=== PATIENT | female | born 2005 | race Hispanic/Latino ===

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

== ENCOUNTER 2024-02-08 13:07 | Emergency (ER) | payer SELFPAY ==
--- OUTSIDE RECORDS SUMMARY | 2024-02-08 13:11 | XMS REPORT | Continuity of Care Document ---
Author Name Unknown Address [address] [facility] [place] [address] [facility] thconnect Address [address] [facility] [place] [address] Care Team Providers Care Scabbler Name Role Phone Pcp, Patient Does Not Have A Primary Care Physic corinna LILI PICKENS Attending Clinician Unavailable Doctor Unassigned, [place] Attending Clinician U Cordell Sharma MD Attending Clinician CORDELL VELAZQUEZ Attending Clinician Unavailable Payers Payer Name Policy Type Policy Number Effective Date Expirati on Date Source [facility] [id number] 2023 00:00:00 Allergies, Adverse Reactions, Alerts Allergy Name Allergy Type Status Severity Reaction(s) Onset Date Inactive Date Treating Clinician Comments Source NO KNOWN ALLERGIE S Drug Class Active [facility] Social History Social Habit Start Date Stop Date Quantity Comments Source [facility] Alcohol intake 2023-11-10 00:00:00 2023-11-10 00:00:00 Lifetime non-drinker (finding) [facility] History of Social function 2023-11-10 00:00:00 2023-11-10 00:00:00 [facility] Tobacco use and exposure 2023-10-17 00:00:00 2023-10-17 00:00:00 Smokeless tobacco non-user [facility] Sex Assigned At 2005 00:00:00 2005 00:00:00 [facility] Smoking Status Start Date Stop Date Source Tobacco smoking consumption unknown [facility] Never smoked tobacco [facility] Medications Ordered Medication Name Filled Medication Name Start Date Stop Date Current Medication? Ordering Clinician Indication Dosage Frequency Signature (SIG) Comments Components Source levonorgest rel-ethinyl estradiol 0.1-20 mg-mcg per tablet 11-09 00:00: 00 Yes [id number] 1{tbl} Take 1 tablet by mouth in the morning. [facility] Nitrofurant oin&Nit. Macrocryst 100 mg capsule 10-17 00:00: 00 Yes [id number] 100mg Take 1 capsule by mouth in the morning and 1 capsule in the evening. [facility] NUVARING 0.12-0.015 mg/24 hr vaginal insert 10-17 00:00: 00 11-09 00:00 :00 No [id number] 1{each} Insert 1 Each into vagina once every month. Insert vaginally and leave in place for 3 consecutiv e weeks, then remove for 1 week. [facility] Vital Signs Vital Name Observation Time Observation Value Comments S our Systolic blood pressure 2023-11-10 15:18:00 116 mm[Hg] [facility] hospital Diastolic blood pressure 2023-11-10 15:18:00 72 mm[Hg] [facility] acute hospital Heart rate 2023-11-10 15:18:00 102 /min [facility] Body temperature 2023-11-10 15:18:00 37.11 Salma [facility] Respiratory rate 2023-11-10 15:18:00 16 /min [facility] Body height 2023-11-10 15:18:00 162.6 cm [facility] Body weight 2023-11-10 15:18:00 54.432 kg [facility] BMI 2023-11-10 15:18:00 20.60 kg/m2 [facility] Body mass index (BMI) [Percentile] Per age and sex 2023-11-10 15:18:00 37.89 % General acute hospital Systolic blood pressure 2023-10-17 21:24:00 117 mm[Hg] [facility] acute hospital Diastolic blood pressure 2023-10-17 21:24:00 67 mm[Hg] General acute hospital Heart rate 2023-10-17 21:24:00 77 /min [facility] Body temperature 2023-10-17 21:24:00 37.11 Salma [facility] Respiratory rate 2023-10-17 21:24:00 18 /min [facility] Body height 2023-10-17 21:24:00 162.6 cm [facility] Body weight 2023-10-17 21:24:00 55.339 kg [facility] BMI 2023-10-17 21:24:00 20.94 kg/m2 [facility] Body mass index (BMI) [Percentile] Per age and sex 2023-10-17 21:24:00 42.72 % General acute hospital Procedures Procedure Date / Time Performed Performing Clinician Source CONSENT FOR CONTRACEPTION 2023-11-10 05:01:00 Doctor Unassigned, [place] [facility] POCT TEST 2023-11-10 00:00:00 Lili Pickens [facility] ASSIGNMENT OF BENEFITS 2023-10-17 21:22:02 Docto r Unassigned, [place] [facility] POCT TEST 2023-10-17 00:00:00 Cordell Velazquez [facility] POCT URINALYSIS W/O SPECIFIC GRAVITY 2023-10-17 00:00:00 Cordell Velazquez [facility] Encounters Start Date/Time End Date/Time Encounter Type Admission Type Attending Clinicians Care Facility Care Department Encounter ID Source 2023-11-10 10:00:00 2023-11-10 10:31:26 Outpatient R LILI PICKENS [facility] [id number] [facility] 2023-11-10 10:00:00 2023-11-10 10:31:26 Office Visit Lili Pickens [facility] [id number] [id number] 134 [id number] [facility] 2023-11-10 00:00:00 2023-11-10 00:00:00 Orders Only Doctor Unassigned, [place] [facility] [id number] [id number] [id number] 009 [id number] [facility] 2023-11-06 00:00:00 2023-11-06 00:00:00 Telephone Adum, Cordell Jorgensen [facility] [id number] [id number] [id number] 134 [id number] [facility] 2023-10-17 15:00:00 2023-10-17 15:30:00 Office Visit Adum, Cordell Jorgensen [facility] [id number] [id number] [id number] [id number] 134 [id number] [facility] 2023-10-17 15:00:00 2023-10-17 15:00:00 Outpatient R ADOH, CORDELL [facility] [id number] [facility] 2023-10-17 00:00:00 2023-10-17 00:00:00 Orders Only Doctor Unassigned, [place] [facility] [id number] [id number] 4.2.7.2.686 [id number] [facility] Results Test Description Test Time Test Comments Results Result Co mments Source [facility] [id number] 15:18:00* Test Item Value Reference Range Interpretation Comme nts POCT PREG (test code = 1605) Negative On board controls acceptable with C Line (test code = 3574) Yes POCT PREG LOT # (test code = 3575) POCT PREG TEST DATE ( test code = 3576) [facility] [id number] 23:00:00* Test Item Value Reference Range Interpretation Comme nts POCT PREG (test code = 1605) Negative On board controls acceptable with C Line (test code = 3574) Yes POCT PREG LOT # (test code = 3575) POCT PREG TEST DATE ( test code = 3576) [facility] [id number] 23:00:00* Test Item Value Reference Range Interpretation Comme nts POCT PREG (test code = 1605) Negative On board controls acceptable with C Line (test code = 3574) Yes POCT PREG LOT # (test code = 3575) POCT PREG TEST DATE ( test code = 3576) [facility] Urinalysis w/o Specific [id number] 22:05:00* Test Item Value Reference Range Interpretation [...] = 3257) 250 Negative - Negati ve [facility] w/o Specific [id number] 22:05:00* Test Item Value Reference Range Interpretation [...] = 3257) 250 Negative - Negati ve [facility] Notes Date/Time Note Provider Source 2023-11-06 15:49:55 [id number]:49:55F ormatting of this note might be different from the original.Spoke with patient. Patient states she started the nuvaring. Patient does not like the nuvaring. Patient reports it is painful and has fallen out of placed multiple times. Patient wanting to start OCP. Patient removed nuvaring today. Patient scheduled for 11/10/2023.Rishabh Hayes RN 11/06/2023 3:59 PM 58583-3Buipdpjca encounter [id number]:59:09Telepho ne encounter NoteTXT1.2.840.434701.1.13.104.2 .7.2.770471|[id number] e for patient iwlg29477-0RacbREQOMMMKRWUEujjkh penelope CStockdriftCDA narrative [id number] Collins [address] 1488EFZKOHCBMTVXRFURBHTBNX8179-4 :59:091.2.840.695855.1.72 .3.15|1.2.840.197376.1.13.104.2. [id number] Rishabh Hayes [facility] 2023-11-06 15:34:33 [id number]:34:33F ormatting of this note might be different from the original.Patient want to switch her control says she was told just to call want to try control pills. 18968-3Vmeircrhk encounter [id number]:35:40Telepho ne encounter NoteTXT1.2.840.586407.1.13.104.2 .7.2.015680|[id number] e for patient dfdw91058-7UkpeNAGUDWCGCSIYijoez penelope C-CDA narrative [id number] [address]Gal[address]on[place] 2380JRJCBBGWRXXHFBLRSTWAWO5277-0 5:35:401.2.840.482477.1.72 .3.15|1.2.840.861705.1.13.104.2. [id number] Yoana Calderon [facility]"
[2024-02-08] MEDS ORDERED: LIDOCAINE 1% MPF 5 ML VIAL ONE (13:40)
[2024-02-08] MEDS ORDERED: TDAP (DIPHTH,PERTUSS(ACELL),TET VAC) 0.5 ML VIAL IMVAC ONE ×2 (13:41→13:47)
--- NOTE | 2024-02-08 14:32 | RAD REPORT ---
EXAM DESCRIPTION: RAD - Knee Right 3 View - 02/08/2024 2:27 pm CLINICAL HISTORY: laceration Pain and swelling COMPARISON: No comparisons FINDINGS: No fracture, dislocation or radiopaque foreign body. No significant joint effusion.
--- NOTE | 2024-02-08 14:46 | ER ---
Nurse's Notes [facility] Name: Pari Calderon Age: 18 yrs Sex: Female : 2005 Arrival Date: 02/08/2024 Time: 13:07 Bed 12 Private MD: Diagnosis: Laceration without foreign body of knee-right Presentation: 02/07 13:31 Chief complaint: Patient states: Pt reports she cut her right knee on the pool ladder kb3 last night. 2.5 cm linear laceration noted inferior to the right knee, edges are jagged. No bleeding noted. Coronavirus screen: Vaccine status: Patient reports being unvaccinated. Client denies travel out of the [place] in the last 14 days. Ebola Screen: Patient negative for fever greater than or equal to 101.5 degrees Fahrenheit, and additional compatible Ebola Virus Disease symptoms Patient denies exposure to infectious person. Patient denies travel to an Ebola-affected area in the 21 days before illness onset. Complicating Factors: There are no complicating factors for this patient. Initial Sepsis Screen: Does the patient meet any 2 criteria? No. Patient's initial sepsis screen is negative. Does the patient have a suspected source of infection? No. Patient's initial sepsis screen is negative. Risk Assessment: Do you want to hurt yourself or someone else? Patient reports no desire to harm self or others. Onset of symptoms was February 07, 2024. 13:31 Method Of Arrival: Ambulatory 3 13:31 Acuity: [place]RA[place] 4 kb3 Triage Assessment: 13:33 General: Appears in no apparent distress. Behavior is calm, cooperative. Pain: kb3 Complains of pain in right knee Pain does not radiate. Pain currently is 3 out of 10 on a pain scale. Injury Description: Laceration sustained to right knee is jagged, 0.5 to 2.5 cm long, not bleeding, was sustained 12-24 hours ago. is bleeding no active bleeding noted. 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 Last tetanus immunization: < 10 years ago. - Infectious Disease History:: Denies. - Social history:: Smoking status: Reported history of juuling and/or vaping. Screenin:23 [facility] ED Fall Risk Assessment (Adult) History of falling in the last 3 months, hb including since admission No falls in past 3 months (0 pts) Confusion or Disorientation No (0 pts) Intoxicated or Sedated No (0 pts) Impaired Gait No (0 pts) Mobility Assist Device Used No (0 pt) Altered Elimination No (0 pt) Score/Fall Risk Level 0 - 2 = Low Risk Oriented to surroundings, Maintained a safe environment, Educated pt \T\ family on fall prevention, incl call for assistance when getting out of bed. Abuse screen: Denies threats or abuse. Denies injuries from another. Nutritional screening: No deficits noted. Tuberculosis screening: No symptoms or risk factors identified. Assessment: 14:22 General: Appears in no apparent distress. Behavior is calm, cooperative. Pain: Pain hb currently is 3 out of 10 on a pain scale. Neuro: Level of Consciousness is awake, alert, obeys commands, Oriented to person, place, time, situation. Cardiovascular: Patient's skin is warm and dry. Respiratory: Respiratory effort is even, unlabored, Respiratory pattern is regular, symmetrical. GI: No signs and/or symptoms were reported involving the gastrointestinal system. : No signs and/or symptoms were reported regarding the genitourinary system. EENT: No signs and/or symptoms were reported regarding the EENT system. Derm: Skin is pink, warm \T\ dry. Musculoskeletal: Reports right knee pain. Injury Description: Laceration sustained to right knee and left leg is clean, 0.5 to 2.5 cm long, was sustained 2-4 hours ago. is bleeding a dressing was applied. Vital Signs: 13:31 BP 97 / 63; Pulse 80; Resp 18; Temp 97.9; Pulse Ox 100% ; Weight 56.7 kg; Height 5 ft. kb3 4 in. ; Pain 3/10; 14:56 BP 100 / 68; Pulse 89; Resp 18; Temp 98.2; Pulse Ox 100% ; Pain 0/10; kb3 13:31 Body Mass Index 21.46 (56.70 kg, 162.56 cm) - Percentile 48.6 % kb3 13:31 Pain Scale: Adult kb3 14:56 Pain Scale: Adult kb3 ED Course: 13:10 Patient arrived in ED. rg4 13:11 Marques Estrella MD is Attending Physician. ec2 13:14 Nils Tan PA is PHCP. cp 13:33 Triage completed. kb3 13:33 Arm band placed on right wrist. kb3 14:08 Carito Shannon, RN is Primary Nurse. kb3 14:10 Assist provider with laceration repair on right knee that was 2.5 cm. or less using kb3 sutures. Set up tray. Performed by Nils OWEN Dressed with 4X4s, Adaptic, Kerlix, Patient tolerated well. 14:23 Patient has correct armband on for positive identification. Bed in low position. Call hb light in reach. Provided Education on: procedures, use of call light. 14:23 No provider procedures requiring assistance completed. Patient did not have IV access hb during this emergency room visit. 14:29 XRAY Knee RIGHT 3 view In Process Unspecified. EDMS Administered Medications: 13:46 Drug: Tetanus-Diphtheria Toxoid IM Adult 0.5 ml IM once; Provide Vaccine Information kb3 Statement (VIS). {Fuller Brush Man: [employer]; Exp: Glenis Apr 02 2026; Lot #: [id number]; Series: 1 of 1; Patient Consent: Obtained; Date/Time: ; Source Name: Pari Calderon; Source Relationship: Self; Address Information: [address] [place] [id number]; ; Education: Provided; VIS Presented Date: ; VIS Publication: Tetanus/Diphtheria (Td) Vaccine VIS 12/03/2016 (historic)} {Note: VIS tez 03/30/2021.} Route: IM; Site: left deltoid; 14:59 Follow up: Response: No adverse reaction kb3 14:37 Drug: Lidocaine Infiltration (1 %) 5 ml 5 ml Infiltration once; to bedside Volume: 5 bp ml; Route: Infiltration; 14:59 Follow up: Response: No adverse reaction kb3 Medication: 14:23 VIS not applicable for this client. hb Outcome: 14:45 Discharge ordered by . armen 14:56 Discharged to home ambulatory, kb3 14:56 Condition: improved 14:56 Discharge instructions given to patient, Instructed on discharge instructions, follow up and referral plans. medication usage, wound care, Demonstrated understanding of instructions, follow-up care, medications, wound care, Prescriptions given X 1, 14:58 Patient left the ED. kb3 Signatures: Dispatcher [employer] EDMS Nils Tan PA PA cp Baxter, Heather, RN RN Mirna Bain rg4 Stalin Rivas, AIDA RN Carito Cabrera, AIDA RN kb3 Marques Estrella MD MD ec2
--- NOTE | 2024-02-08 14:46 | EDPHYS ---
Physician Documentation [facility] Name: Pari Calderon Age: 18 yrs Sex: Female : 2005 Arrival Date: 02/08/2024 Time: 13:07 Bed 12 Private MD: ED Physician Marques Estrella HPI: 02/07 13:33 This 18 yrs old Female presents to ER via Ambulatory with complaints of cp Laceration To Leg. 13:33 The laceration(s) is(are) located on the right knee. cp 13:33 Onset: The symptoms/episode began/occurred last night, about 1999. Associated signs and cp symptoms: Pertinent negatives: heavy bleeding. 13:33 Patient reports injury occurred on sharp piece of metal ladder in pool. 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 Last tetanus immunization: < 10 years ago. - Infectious Disease History:: Denies. - Social history:: Smoking status: Reported history of juuling and/or vaping. ROS: 13:35 MS/extremity: Positive for laceration, of the right knee, cp 13:35 Constitutional: HX per HPI cp 13:35 All other systems are negative, Exam: 13:40 Constitutional: The patient appears in no acute distress, alert, awake, non-toxic, well cp developed, well nourished, 13:40 Head/Face: Normocephalic, atraumatic. cp 13:40 Musculoskeletal/extremity: Extremities: grossly normal except: noted in the right knee: laceration noted below joint line with minimal erythema, minimal swelling and no drainage from wound, no active bleeding, ROM: full active range of motion, in the right knee, Perfusion: the extremity is normally perfused throughout, Sensation intact. Vital Signs: 13:31 BP 97 / 63; Pulse 80; Resp 18; Temp 97.9; Pulse Ox 100% ; Weight 56.7 kg; Height 5 ft. kb3 4 in. ; Pain 3/10; 14:56 BP 100 / 68; Pulse 89; Resp 18; Temp 98.2; Pulse Ox 100% ; Pain 0/10; kb3 13:31 Body Mass Index 21.46 (56.70 kg, 162.56 cm) - Percentile 48.6 % kb3 13:31 Pain Scale: Adult kb3 14:56 Pain Scale: Adult kb3 Laceration: 14:43 Wound Repair of 2.5cm ( 1.0in ) subcutaneous laceration to right knee. Linear shaped.. cp Distal neuro/vascular/tendon intact. Anesthesia: Wound infiltrated with 5 mls of 2% lidocaine. Wound prep: Moderate cleansing by me, Wound irrigation by me. Skin closed with 2 4-0 Prolene using interrupted sutures and sterile technique. Dressed with Bacitracin, 4x4's. Patient tolerated well. MDM: 13:11 Patient medically screened. ec2 14:45 Data reviewed: vital signs, nurses notes, radiologic studies, plain films, and as a cp result, I will discharge patient. 14:45 Differential diagnosis: superficial laceration, tendon injury, vascular injury. I cp considered the following discharge prescriptions or medication management in the emergency department Medications were administered in the Emergency Department. See MAR. Counseling: I had a detailed discussion with the patient and/or guardian regarding the historical points, exam findings, and any diagnostic results supporting the discharge/admit diagnosis, radiology results, the need for outpatient follow up, a family practitioner. Response to treatment: the patient's symptoms have markedly improved after treatment. Special discussion: I discussed in detail with the patient the higher chance of wound infection based on his presenting history. 02/07 13:30 Order name: XRAY Knee RIGHT 3 view; Complete Time: 14:44 cp 02/07 14:44 Interpretation: Report reviewed. cp 02/07 14:43 Order name: Wound dressing; Complete Time: 14:48 cp Administered Medications: 13:46 Drug: Tetanus-Diphtheria Toxoid IM Adult 0.5 ml IM once; Provide Vaccine Information kb3 Statement (VIS). {Lion Hunter: [employer]; Exp: Glenis Apr 02 2026; Lot #: [id number]; Series: 1 of 1; Patient Consent: Obtained; Date/Time: ; Source Name: Pari Calderon; Source Relationship: Self; Address Information: [address] [place] [id number]; ; Education: Provided; VIS Presented Date: ; VIS Publication: Tetanus/Diphtheria (Td) Vaccine VIS 12/03/2016 (historic)} {Note: VIS tez b003/30/2021.} Route: IM; Site: left deltoid; 14:59 Follow up: Response: No adverse reaction kb3 14:37 Drug: Lidocaine Infiltration (1 %) 5 ml 5 ml Infiltration once; to bedside Volume: 5 bp ml; Route: Infiltration; 14:59 Follow up: Response: No adverse reaction kb3 Disposition Summary: 02/08/24 14:45 Discharge Ordered Notes: Location: Home cp Problem: new cp Symptoms: have improved cp Condition: Stable cp Diagnosis - Laceration without foreign body of knee - right cp Followup: cp - With: Private Physician - When: 10 - 14 days - Reason: Staple/Suture removal Discharge Instructions: - Discharge Summary Sheet cp - Laceration Care, Adult cp Forms: - Medication Reconciliation Form cp - Antibiotic Education cp - Prescription Opioid Use cp - Patient Portal Instructions cp - Leadership Thank You Letter cp Prescriptions: - Cephalexin 500 mg Oral Capsule - take 1 capsule ORAL route every 8 hours for 10 days; 30 capsule; Refills: 0, cp Product Selection Permitted Addendum: 02/10/2024 14:17 I was immediately available for consultation during this patient's visit. I did not e c2 personally see the patient or discuss the patient with the JAIME. . Signatures: Dispatcher [employer] Nils Yusuf PA PA cp Peltier, Brian, RN RN Carito Cabrera RN RN kb3 Marques Estrella MD MD ec2
== END 2024-02-08 14:58 | disposition home or self-care (01) ==
LOC: ER 13:07
PROC: 0HQKXZZ Repair Right Lower Leg Skin, External Approach (ICD-10-PCS; principal; 2024-02-08)
DX: S81.011A Laceration without foreign body, right knee, initial encounter (principal)
CPT/HCPCS: 90471; 99284; J2001